=== PATIENT | female | born 1975 | race Caucasian/White ===

== ENCOUNTER → 2016-12-02 | Outpatient (CLI) | payer OTHER | LOC: HEART CORB 10:26 | DX: R07.2 Precordial pain (principal); R06.02 Shortness of breath; R00.2 Palpitations ==

== ENCOUNTER → 2016-12-09 | Outpatient (CLI) | payer OTHER | LOC: HEART CORB 09:46 | DX: R07.2 Precordial pain (principal); R06.02 Shortness of breath ==